=== PATIENT | male | born 1960 | race Caucasian/White ===

== ENCOUNTER 2016-06-04 18:29 | Emergency (ER) | payer OTHER ==
[~2016-06-04] VITALS: Ht 182.9 cm; Wt 74.9 kg
[~2016-06-04 18:29] MED LIST: ALBU18002 INH; BUPR8SUB19 SL
[2016-06-04 19:10] VITALS: TEMP 36.3
[2016-06-04] MEDS ORDERED: SODIUM CHLORIDE 0.9% 1000ML 1,000 ML IV STA (20:29)
[2016-06-04] MEDS ORDERED: SBTSL/8 SL (20:36)
[2016-06-04] MEDS ORDERED: ALBUT/IPRATROP 3MG/0.5MG NEB 3 ML VIAL INH ONE (20:45)
[2016-06-04 21:00] VITALS: O2SAT 98; Ht 182.9 cm; Wt 74.9 kg
[2016-06-04 21:02] LABS: BASO % 0.3 %; BASO ABS # 0.02 K/uL (0-0.2); COMPLETE YES; HEMATOCRIT 41.8 % (42-52); IG% 0.3 %; LYMPH % 43.6 %; LYMPH ABS # 3.41 K/uL (1.2-3.4); MEAN CELL VOLUME 90.9 fL (80-100); MEAN CORPUSCULAR HEMOGLOBIN 30.7 pg (25-34); MEAN CORPUSCULAR HGB CONC 33.7 g/dl (32-36); MEAN PLATELET VOLUME 9.2 fL (7.4-10.4); MONO % 9.8 %; PLATELET COUNT 240 K/uL (130-400); WHITE BLOOD COUNT 7.82 K/uL (4.8-10.8)
--- NOTE | 2016-06-04 21:11 | EMERGENCY ROOM VISIT NOTE ---
History Report prepared by Helen: Kari Whitney Under the Supervision of: Dr. Dav Aquino M.D. First contact with patient: 20:18 Chief Complaint: NEURO SYMPTOMS Stated Complaint: CANT STAY AWAKE,INVOLUNTARY ARM MOVEMENTS,BACKLEG History of Present Illness The patient is a 55 year old male who presents to the Emergency Room with complaints of worsening neuro symptoms that started 2 days ago. The patient states that he has been falling and experiencing LOC for no apparent reason. He states that he has fallen approximately 3 times in the last 2 days. He hit the left side of his back on the corner of the counter during one of his falls, so he is experiencing some left-sided back pain from that. The patient also states that he feels like "he could sleep for 7 days." He denies abdominal pain. The patient's family reports that the patient loses days of memory. For example, the patient went to sleep and woke up two days later, but did not remember being awake two days before. The patient's family member gave him a couple hydrocodone that she had at home around 1500. Per the nursing triage note, the patient has a history of Lyme disease and a TIA. The patient also has mite bites all over his arms related to the place that he is living. Source of History: patient, family Onset: 2 days ago Position: other (global) Quality: other (neuro symptoms) Timing: worsening Associated Symptoms: + LOC, + back pain (left-sided) Review of Systems See HPI for pertinent positives & negatives. A total of 10 systems reviewed and were otherwise negative. Past Medical & Surgical Medical Problems: (1) Lyme disease Family History Hypertension Social History Smoking Status: Current Every Day Smoker Marital Status: single Housing Status: lives with family Current/Historical Medications Scheduled Buprenorphine HCl (Buprenorphine HCl), 20 MG SL DAILY Scheduled PRN Albuterol Sulfate (Proair Respiclick), 2 PUFFS INH QID PRN for Shortness of Breath Allergies Coded Allergies: No Known Allergies (Verified , 02/29/16) Physical Exam Vital Signs Date Time Temp Pulse Resp B/P Pulse Ox O2 Delivery O2 Flow Rate FiO2 06/05/16 01:16 69 18 141/92 100 06/05/16 00:17 69 18 141/92 100 Room Air 06/04/16 22:05 65 12 144/87 100 Room Air 06/04/16 21:00 98 Room Air 3/13/17 21:00 98 Room Air 06/04/16 20:45 62 06/04/16 20:39 63 12 135/85 77 128/87 89 112/91 06/04/16 19:10 36.3 97 19 156/92 98 Room Air Physical Exam GENERAL: Patient is a healthy-appearing well-nourished male. HEAD: Normocephalic atraumatic EYES: Ocular movements intact pupils equal and react to light OROPHARYNX mucous membranes are moist no exudates present no erythema or edema present NECK: Supple no nuchal rigidity CHEST: Good equal expansion LUNGS: Clear and equal to auscultation CARDIAC: Normal S1 and S2 ABDOMEN: Soft nontender no guarding BACK: Tender to L1. No CVA tenderness EXTREMITIES: No pain upon palpation normal muscle strength in all groups no clubbing cyanosis or edema NEURO: Patient is following commands is answering questions appropriately. Alert and oriented x3 Cranial Nerves 2-12 grossly intact Medical Decision & Procedures ER Provider Diagnostic Interpretation: Radiology results as stated below per my review and radiologist interpretation: CHEST ONE VIEW PORTABLE IMPRESSION: No acute cardiopulmonary findings. Electronically signed by: Art Frazier M.D. 06/04/2016 10:12 PM Dictated Date/Time: 06/04/2016 10:[address] OF THE HEAD WITHOUT CONTRAST IMPRESSION: No acute intracranial findings. Electronically signed by: Art Frazier M.D. 06/04/2016 9:51 PM Dictated Date/Time: 06/04/2016 9:[address] OF THE LUMBAR SPINE WITHOUT CONTRAST IMPRESSION: 1. No acute lumbar spine fracture or subluxation. 2. Moderate multilevel degenerative disc disease and facet arthrosis of the lumbar spine. Suboptimal evaluation of the central canal and neural foramen due to CT technique but suspected moderate to severe central canal stenosis at L4-L5 and mild to moderate central canal stenosis at L1-L2. 3. Apparent dilatation of the celiac axis. This may be artifactual. A follow-up nonemergent CTA of the abdomen is recommended. Electronically signed by: Art Frazier M.D. 06/04/2016 10:03 PM Dictated Date/Time: 06/04/2016 9:[address] ABDOMEN & PELVIS IMPRESSION: The liver, gallbladder, spleen, pancreas, and adrenal glands are within normal limits. Kidneys enhance symmetrically. There is no hydronephrosis or radiopaque urolithiasis. IVC is normal. Aorta is normal in caliber. 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 There is no small or large bowel obstruction. The visualized appendix is normal. There is sigmoid diverticulosis without acute diverticulitis. Urinary bladder and prostate are unremarkable. There are no acute osseous findings. Lumbar spondylosis is better described on dedicated CT and MRI of lumbar spine performed on the same day. MRI L SPINE: IMPRESSION: 1. Lumbar spondylosis. 2. Moderate spinal canal narrowing at L1-L2 with mild bilateral foraminal narrowing. 3. Severe spinal canal narrowing at L4-L5. 2. Multilevel foraminal narrowing, severe on the left at L3-L4 and sever bilaterally at L4-L5 and L5-S1. LUMBAR SPINE MRI HISTORY: Trauma. Pain. Pt c/o multiple falls at home TECHNIQUE: Multiplanar multisequence MRI of the lumbar spine was performed without the use of contrast. COMPARISON: None. FINDINGS: For the purpose of the report the L5-S1 disc space will be located on axial image 27 of 30. Degenerative disc change throughout the entire lumbar region L1-L2: Broad-based posterior disc herniation. Mild impact anterior thecal sac. Narrowing of the neuroforamina bilaterally considered moderate L2-L3: Broad-based disc herniation. Mild impact anterior thecal sac. Moderate narrowing of the neuroforamina bilaterally L3-L4: Mild multifactorial narrowing of spinal canal. Moderate narrowing of the neuroforamina bilaterally L4-L5: Severe multifactorial spinal stenosis. Moderate narrowing of the neuroforamina bilaterally L5-S1: Broad-based bulging disc with minimal impact anterior thecal sac. Mild osteophytic narrowing of the neuroforamina bilaterally. IMPRESSION: 1. Multilevel disc herniations at with moderate impact upon the anterior thecal sac as well as neural foramina bilaterally. 2. Severe multifactorial spinal stenosis L4-L5 Electronically signed by: Reid Colmenares M.D. 06/05/2016 6:46 AM Dictated Date/Time: 06/05/2016 6:44 AM ABDOMEN AND PELVIS CT WITH IV CONTRAST CT DOSE: 486.03 mGycm HISTORY: Pain WEAKNESS TECHNIQUE: Multiaxial CT images of the abdomen and pelvis were performed following the use of intravenous contrast. COMPARISON STUDY: None. FINDINGS: Lung bases are clear. Liver spleen and pancreas are unremarkable. The kidneys enhance appropriately. Bowel pattern is considered nonobstructive. No evidence for gallbladder distention. The appendix is normal. 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 No evidence for acute diverticulitis. IMPRESSION: 1. 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 2. Mild chronic sigmoid diverticulosis. 3. Study abdomen and pelvis is otherwise negative Electronically signed by: Reid Colmenares M.D. 06/05/2016 6:35 AM Dictated Date/Time: 06/05/2016 6:33 AM Laboratory Results 06/04/16 20:45 Red Blood Count 4.60, Mean Corpuscular Volume 90.9, Mean Corpuscular Hemoglobin 30.7, Mean Corpuscular Hemoglobin Concent 33.7, Mean Platelet Volume 9.2, Neutrophils (%) (Auto) 42.0, Lymphocytes (%) (Auto) 43.6, Monocytes (%) (Auto) 9.8, Eosinophils (%) (Auto) 4.0, Basophils (%) (Auto) 0.3, Neutrophils # (Auto) 3.29, Lymphocytes # (Auto) 3.41, Monocytes # (Auto) 0.77, Eosinophils # (Auto) 0.31, Basophils # (Auto) 0.02 06/04/16 20:45 Test 06/04/16 20:45 06/04/16 20:47 06/05/16 00:20 White Blood Count 7.82 K/uL (4.8-10.8) Red Blood Count 4.60 M/uL (4.7-6.1) Hemoglobin 14.1 g/dL (14.0-18.0) Hematocrit 41.8 % (42-52) Mean Corpuscular Volume 90.9 fL (80-100) Mean Corpuscular Hemoglobin 30.7 pg (25-34) Mean Corpuscular Hemoglobin Concent 33.7 g/dl (32-36) Platelet Count 240 K/uL (130-400) Mean Platelet Volume 9.2 fL (7.4-10.4) Neutrophils (%) (Auto) 42.0 % Lymphocytes (%) (Auto) 43.6 % Monocytes (%) (Auto) 9.8 % Eosinophils (%) (Auto) 4.0 % Basophils (%) (Auto) 0.3 % Neutrophils # (Auto) 3.29 K/uL (1.4-6.5) Lymphocytes # (Auto) 3.41 K/uL (1.2-3.4) Monocytes # (Auto) 0.77 K/uL (0.11-0.59) Eosinophils # (Auto) 0.31 K/uL (0-0.5) Basophils # (Auto) 0.02 K/uL (0-0.2) RDW Standard Deviation 48.4 fL (36.4-46.3) RDW Coefficient of Variation 14.5 % (11.5-14.5) Immature Granulocyte % (Auto) 0.3 % Immature Granulocyte # (Auto) 0.02 K/uL (0.00-0.02) Anion Gap 8.0 mmol/L (3-11) Est Creatinine Clear Calc Drug Dose 92.0 ml/min Estimated GFR () 103.3 Estimated GFR (Non- 89.1 BUN/Creatinine Ratio 13.3 (10-20) Calcium Level 9.0 mg/dl (8.5-10.1) Total Bilirubin 0.3 mg/dl (0.2-1) Direct Bilirubin < 0.1 mg/dl (0-0.2) Aspartate Amino Transf (AST/SGOT) 21 U/L (15-37) Alanine Aminotransferase (ALT/SGPT) 22 U/L (12-78) Alkaline Phosphatase 93 U/L (45-117) Total Creatine Kinase 209 U/L (39-308) Creatine Kinase MB 2.1 ng/ml (0.5-3.6) Creatine Kinase MB Ratio 1.0 (0-3.0) Troponin I < 0.015 ng/ml (0-0.045) Total Protein 7.5 gm/dl (6.4-8.2) Albumin 3.3 gm/dl (3.4-5.0) Thyroid Stimulating Hormone (TSH) 2.180 uIu/ml (0.300-4.500) Lyme Disease IgG Antibody NEG (NEG) Bedside Glucose 81 mg/dl (70-99) Urine Color YELLOW Urine Appearance CLEAR (CLEAR) Urine pH 7.0 (4.5-7.5) Urine Specific [place] > 1.045 (1.000-1.030) Urine Protein NEG (NEG) Urine Glucose (UA) NEG (NEG) Urine Ketones NEG (NEG) Urine Occult Blood NEG (NEG) Urine Nitrite NEG (NEG) Urine Bilirubin NEG (NEG) Urine Urobilinogen NEG (NEG) Urine Leukocyte Esterase NEG (NEG) Labs reviewed by ED physician. Medications Administered Medications (Trade) Dose Ordered Sig/Bjorn Route Start Time Stop Time Status Last Admin Dose Admin Sodium Chloride (Nss 1000ml) 1,000 ml @ 999 mls/hr Q1H1M STAT IV 06/04/16 20:29 06/04/16 21:29 DC 06/04/16 21:37 999 MLS/HR Albuterol/ Ipratropium (Duoneb) 12 ml ONE ONCE INH 06/04/16 20:45 06/04/16 20:46 DC 06/04/16 20:45 12 ML Permethrin (Elimite 5% Crm) 1 appln NOW STAT EXT 06/04/16 22:06 06/04/16 22:09 DC 06/05/16 00:12 180 APPLN ECG Indication: back/shoulder pain Rate (beats per minute): 65 Rhythm: normal sinus Findings: no acute ischemic change, no ectopy ED Course 2024: Past medical records reviewed. The patient was evaluated in room B12. A complete history and physical examination was performed. 2028: Ordered Sodium Chloride 1000 ml @ 999 mls/hr IV 2044: Ordered DuoNeb 12 ml INH 2205: Ordered Permethrin 1 appln EXT 0037: The outsole caser is going to get the patient patient in to see a physician. 0040: Upon reexamination the patient is doing well. I discussed results and treatment plan with the patient. He verbalizes agreement and understanding. The patient is ready for discharge. Medical Decision Differential diagnosis: Etiologies such as metabolic, infection, hypo/hyperglycemia, electrolyte abnormalities, cardiac sources, intracerebral event, toxicologic, neurologic, as well as others were entertained. This is a 55-year-old male who presents emergency department complaining of multiple falls. This turns out the patient is complaining of sleepwalking and he wakes up on the ground. At first he thought he meant he was having weakness in his legs however on further testing, the patient can walk was tiptoes and his heels and has good balance. In addition he does not have any loss of bowel or bladder control. The patient was found to be infested with mites and therefore had to be moved into a private room. Contact precautions were taken. He was ordered permethrin cream. Based on the patient's complaints he was sent for CAT scan of the head which did not show any evidence of acute infarct. His lumbar spine was concerning for some cord protrusion. based on this he was sent for an MRI of the lower back however I will note that the patient is again able to walk was tiptoes and his heels has no evidence of saddle anesthesia on exam. The patient's family wishes for him to be admitted to the hospital however the hospitalist will not admit him without having a clear diagnosis. At this point the patient wishes to leave the emergency department. I did get in touch with case management who will have closely follow to get the patient in with his primary care physician. Patient and family were in agreement with the treatment plan. Impression Primary Impression: Multiple falls Scribe Attestation The scribe's documentation has been prepared under my direction and personally reviewed by me in its entirety. I confirm that the note above accurately reflects all work, treatment, procedures, and medical decision making performed by me. Departure Information Dispostion Home / Self-Care Referrals No Doctor, Assigned (PCP) Forms HOME CARE DOCUMENTATION FORM, IMPORTANT VISIT INFORMATION, WORK / SCHOOL INSTRUCTIONS Patient Instructions [facility] Additional Instructions Reapply cream in 14 days Follow up with DR Alegria's office for mutiple syncopal episodes You have been examined and treated today on an emergency basis only. This is not a substitute for, or an effort to provide, complete comprehensive medical care. It is impossible to recognize and treat all injuries or illnesses in a single emergency department visit. It is therefore important that you follow up closely with Dr Lea. Call as soon as possible for an appointment. Thank you for your time and consideration. I look forward to speaking with you again soon. Please don't hesitate to call us if you have any questions.
[2016-06-04 21:31] LABS: ALT/SGPT 22 U/L (12-78); BLOOD UREA NITROGEN 13 mg/dl (7-18); BUN/CREATININE RATIO 13.3 (10-20); CARBON DIOXIDE 29 mmol/L (21-32); CHLORIDE 105 mmol/L (98-107); CREATININE 0.95 mg/dl (0.60-1.40); GLUCOSE 86 mg/dl (70-99); POTASSIUM 3.6 mmol/L (3.5-5.1); SODIUM 142 mmol/L (136-145)
[2016-06-04 21:47] LABS: ALKALINE PHOSPHATASE 93 U/L (45-117); AST/SGOT 21 U/L (15-37)
--- NOTE | 2016-06-04 21:53 | DIAGNOSTIC IMAGING REPORT ---
CT OF THE HEAD WITHOUT CONTRAST CLINICAL HISTORY: Altered mental status. Fall. COMPARISON STUDY: Head CT November 15, 2015. CT DOSE: 638.56 mGycm TECHNIQUE: Helical axial images of the head were obtained without IV contrast. Automated exposure control was utilized for the study. FINDINGS: No acute intracranial hemorrhage, midline shift or mass effect is present. Ventricular system is normal. Basilar cisterns are patent. There are no extra axial collections. Walton-white differentiation is maintained. There are no findings to suggest acute dural sinus thrombosis or acute territorial infarct. There is mild mucosal thickening of the ethmoid sinuses. Surgical material within the lateral wall the right orbit is noted. There is no calvarial fracture. Mastoid air cells are clear. IMPRESSION: No acute intracranial findings. Electronically signed by: Art Frazier M.D. 06/04/2016 9:51 PM Dictated Date/Time: 06/04/2016 9:48 PM
--- NOTE | 2016-06-04 22:04 | DIAGNOSTIC IMAGING REPORT ---
CT OF THE LUMBAR SPINE WITHOUT CONTRAST CT DOSE: 558.63 mGycm CLINICAL HISTORY: Low back pain status post fall. TECHNIQUE: Axial images of the lumbar spine were obtained without IV contrast. Sagittal and coronal reconstructions were viewed. COMPARISON STUDY: Lumbar spine CT November 14, 2005. FINDINGS: This exam is mildly compromised by motion artifact. No acute lumbar spine fracture or subluxation is present. Moderate multilevel degenerative disc disease is noted with disc space narrowing, vacuum disc phenomenon and osteophytosis. The central canal and neural foramen are suboptimally assessed by CT. The paravertebral soft tissues are unremarkable by CT. Visualized portions of the sacroiliac joints are intact. There is apparent dilatation of the celiac axis, measuring approximately 1.6 cm. This is partially imaged and may be artifactual. IMPRESSION: 1. No acute lumbar spine fracture or subluxation. 2. Moderate multilevel degenerative disc disease and facet arthrosis of the lumbar spine. Suboptimal evaluation of the central canal and neural foramen due to CT technique but suspected moderate to severe central canal stenosis at L4-L5 and mild to moderate central canal stenosis at L1-L2. 3. Apparent dilatation of the celiac axis. This may be artifactual. A follow-up nonemergent CTA of the abdomen is recommended. Electronically signed by: Art Frazier M.D. 06/04/2016 10:03 PM Dictated Date/Time: 06/04/2016 9:54 PM
[2016-06-04] MEDS ORDERED: PERMETHRIN 5% CR 60 GM TUBE EXT STA (22:06)
--- NOTE | 2016-06-04 22:13 | DIAGNOSTIC IMAGING REPORT ---
CHEST ONE VIEW PORTABLE CLINICAL HISTORY: Shortness of breath. COMPARISON STUDY: Chest CT November 15, 2015. FINDINGS: Lung volumes are normal. There is no pneumothorax or pleural effusion. Cardiac size is normal. Mediastinal contours are normal. There is no evidence of pulmonary edema. IMPRESSION: No acute cardiopulmonary findings. Electronically signed by: Art Frazier M.D. 06/04/2016 10:12 PM Dictated Date/Time: 06/04/2016 10:11 PM
[2016-06-04] MEDS ORDERED: OPTIRAY 320 IV PRN (22:15)
[2016-06-05 00:32] LABS: URINE APPEARANCE CLEAR (CLEAR); URINE BILIRUBIN NEG (NEG); URINE COLOR YELLOW; URINE NITRITE NEG (NEG); URINE SPECIFIC GRAVITY > 1.045 (1.000-1.030); UROBILINOGEN NEG (NEG)
[2016-06-05 00:37] LABS: MANUAL MICROSCOPIC REQUIRED? NO; REVIEW REQ? NO
[2016-06-05 01:16] VITALS: BP 141/92; PULSE 69; O2SAT 100
[2016-06-05 01:40] LABS: LYME DISEASE AB IGG NEG (NEG); LYME DISEASE AB IGM POS (NEG)
--- NOTE | 2016-06-05 06:36 | DIAGNOSTIC IMAGING REPORT ---
ABDOMEN AND PELVIS CT WITH IV CONTRAST CT DOSE: 486.03 mGycm HISTORY: Pain WEAKNESS TECHNIQUE: Multiaxial CT images of the abdomen and pelvis were performed following the use of intravenous contrast. COMPARISON STUDY: None. FINDINGS: Lung bases are clear. Liver spleen and pancreas are unremarkable. The kidneys enhance appropriately. Bowel pattern is considered nonobstructive. No evidence for gallbladder distention. The appendix is normal. 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 No evidence for acute diverticulitis. IMPRESSION: 1. 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 2. Mild chronic sigmoid diverticulosis. 3. Study abdomen and pelvis is otherwise negative Electronically signed by: Reid Colmenares M.D. 06/05/2016 6:35 AM Dictated Date/Time: 06/05/2016 6:33 AM
--- NOTE | 2016-06-05 06:47 | DIAGNOSTIC IMAGING REPORT ---
LUMBAR SPINE MRI HISTORY: Trauma. Pain. Pt c/o multiple falls at home TECHNIQUE: Multiplanar multisequence MRI of the lumbar spine was performed without the use of contrast. COMPARISON: None. FINDINGS: For the purpose of the report the L5-S1 disc space will be located on axial image 27 of 30. Degenerative disc change throughout the entire lumbar region L1-L2: Broad-based posterior disc herniation. Mild impact anterior thecal sac. Narrowing of the neuroforamina bilaterally considered moderate L2-L3: Broad-based disc herniation. Mild impact anterior thecal sac. Moderate narrowing of the neuroforamina bilaterally L3-L4: Mild multifactorial narrowing of spinal canal. Moderate narrowing of the neuroforamina bilaterally L4-L5: Severe multifactorial spinal stenosis. Moderate narrowing of the neuroforamina bilaterally L5-S1: Broad-based bulging disc with minimal impact anterior thecal sac. Mild osteophytic narrowing of the neuroforamina bilaterally. IMPRESSION: 1. Multilevel disc herniations at with moderate impact upon the anterior thecal sac as well as neural foramina bilaterally. 2. Severe multifactorial spinal stenosis L4-L5 Electronically signed by: Reid Colmenares M.D. 06/05/2016 6:46 AM Dictated Date/Time: 06/05/2016 6:44 AM
[2016-06-06 16:59] LABS: 18KDIGG BAND REACTIVE (NONREACTIVE); 23KDIGG BAND NONREACTIVE (NONREACTIVE); 23KDIGM BAND REACTIVE (NONREACTIVE); 28KDIGG BAND NONREACTIVE (NONREACTIVE); 30KDIGG BAND NONREACTIVE (NONREACTIVE); 39KDIGG BAND REACTIVE (NONREACTIVE); 39KDIGM BAND NONREACTIVE (NONREACTIVE); 41KDIGG BAND REACTIVE (NONREACTIVE); 41KDIGM BAND NONREACTIVE (NONREACTIVE); 45KDIGG BAND REACTIVE (NONREACTIVE); 58KDIGG BAND NONREACTIVE (NONREACTIVE); 66KDIGG BAND NONREACTIVE (NONREACTIVE); 93KDIGG BAND NONREACTIVE (NONREACTIVE)
== END 2016-06-05 01:00 | disposition home or self-care (01) ==
LOC: C.EDB 18:31 → C.EDC 06-05 01:00
DX: R29.6 Repeated falls (principal); F17.210 Nicotine dependence, cigarettes, uncomplicated; M54.9 Dorsalgia, unspecified

== ENCOUNTER → 2016-06-08 | Outpatient (CLI) | payer OTHER ==
[~2016-06-08] MED LIST changes: -BUPR8SUB19 SL; +SBTSL/8 SL
[2016-06-08 17:34] LABS: THYROID STIMULATING HORMONE 6.91 uIu/ml (0.300-4.500)
== END | disposition home or self-care (01) ==
LOC: C.LABPBG 13:52
PROVIDERS: ATTEND Internal Medicine Critical Care Medicine
DX: R53.83 Other fatigue (principal); R55 Syncope and collapse

== ENCOUNTER 2019-09-22 22:43 | Observation (INO) ==
--- OUTSIDE RECORDS SUMMARY | 2019-09-22 22:46 | External Medical Summary | Continuity of Care Document ---
:1960 Author Name Alexandria Retana, Provider Address Unavailable Unavailable , Care Team Providers Name Role Phone Unavailable Unavailable Unavailable Fernanda Rivas PA-C Unavailable [email or web address]. AXEL Pickett Unavailable Unavailable Zay DO Unavailable [email or web address] Hyacinth ALMONTE Unavailable Unavailable Unavailable Unavailable Unavailable Problems History of Lyme disease (V12.09) (Z86.19) History of asthma (V12.69) (Z87.09) History of diverticulosis (V12.79) (Z87.19) Hypothyroidism, adult (244.9) (E03.9) Vitamin D deficiency (268.9) (E55.9) Crusted scabies (133.0) (B86) Syncope and collapse (780.2) (R55) Fatigue (780.79) (R53.83) Snoring (786.09) (R06.83) History of illicit drug use (305.90) (Z87.898) Multiple excoriations (919.8) (T07.XXXA) Allergies and Adverse Reactions No Known Drug Allergies (Allergy) Medications Vitamin D3 25 MCG (1000 UT) Oral Tablet; TAKE 1 TABLET DAILY. JENNIFER Rivas Start: 15-Jun-2016 Refills: 0 Levothyroxine Sodium 25 MCG Oral Tablet; TAKE 1 TABLET DAILY. JENNIFER Rivas Start: 19-Jun-2016 Quantity: 30 Refills: 1 Procedures History of Foot Surgery Status: Complete d Immunizations Immunizations not documented Family History Mother Family history of myocardial infarction (V17.3) (Z82.49) Sta tus: Active Social History - Smoking Status Smokes tobacco daily Plan of Treatment Planned Observations Planned Goals not documented Results No Known Results Results not documented
[2019-09-22] MEDS ORDERED: NITROGLYCERIN SL 0.4 MG/TAB TAB SL PRN (22:54)
[2019-09-22 23:10] LABS: Basophils # (auto) 0.04 K/uL (0-0.2); Basophils % (auto) 0.4 %; Eosinophils # (auto) 0.87 K/uL (0-0.5); Eosinophils % (auto) 9.6 %; Hematocrit (blood only) 40.3 % (42-52); Hemoglobin 13.1 g/dL (14.0-18.0); Immature Granulocytes # (auto) 0.02 K/uL (0.00-0.02); Immature Granulocytes % (auto) 0.2 %; Lymphocytes # (auto) 3.93 K/uL (1.2-3.4); Lymphocytes % (auto) 43.3 %; Mean Corpuscular Hemoglobin 30.5 pg (25-34); Mean Corpuscular Hgb Conc 32.5 g/dL (32-36); Mean Corpuscular Volume 93.7 fL (80-100); Mean Platelet Volume 9.4 fL (7.4-10.4); Monocytes # (auto) 0.99 K/uL (0.11-0.59); Monocytes % (auto) 10.9 %; Neutrophils # (auto) 3.23 K/uL (1.4-6.5); Neutrophils % (auto) 35.6 %; Platelet Count 233 K/uL (130-400); RDW Coefficient of Variation 14.7 % (11.5-14.5); RDW Standard Deviation 49.5 fL (36.4-46.3); White Blood Count 9.08 K/uL (4.8-10.8)
--- NOTE | 2019-09-22 23:23 | Emergency Department Note ---
History of Present Illness General Chief complaint: Chest Pain History of Present Illness Maximum Pain Intensity: 3 This 59-year-old presents to the ER complaining of chest pain and shortness of breath that was given aspirin and nitroglycerin by EMS Location: Chest Quality: Hard to breathe Severity: Moderate Duration: Tonight Timing: Started while walking Context: Patient was concerned and came in Modifying factors: better with rest; worse with activity No prior heart testing. Patient does smoke. No alcohol or drug use. No family history of heart disease. No recent stress test or echo. Patient denies prior heart attack. Patient states he is walking developed shortness of breath and chest pain. It did not radiate. He felt better after nitroglycerin from EMS. Patient denies fevers, flulike illness, abdominal pain, leg pain or swelling. Home Medications Home Medications Medication Instructions Recorded Confirmed Type fluticasone propionate [Flovent 2 puff INHALATION DAILY PRN 09/22/19 09/22/19 History HFA] levothyroxine 50 mcg PO QAM 09/22/19 09/22/19 History Allergies Allergy/AdvReac Type Severity Reaction Status Date / Time No Known Allergies Allergy Mild Verified 09/22/19 23:45 Past Med/Surg History Medical History (Updated 09/23/19 @ 00:40 by Judit Rivas PA-C) Drug-induced psychotic disorder (Acute) Lyme arthritis Methamphetamine abuse (Acute) Rheumatoid arthritis Surgical History No pertinent past surgical history Social History marital status: Legally Current Living Situation: Alone current occupational status: employed Feels Safe at Home: Yes Smoking Status: Current every day smoker Hx Alcohol Use: No Hx Substance Use: No Review of Systems A total of 10 systems reviewed and were otherwise negative Physical Exam Vital Signs Vital Signs - 24 hr 09/22/19 22:49 09/22/19 22:50 09/22/19 22:51 Temperature Temperature Source Pulse Rate 57 L 69 59 L Pulse Rate from SpO2 Sensor 59 L Respiratory Rate 19 21 20 Blood Pressure 136/83 Blood Pressure Mean 86 Pulse Oximetry 100 Oxygen Delivery Method Sepsis Recent Fever Within 48 Hours Sepsis Action Taken by Nursing 09/22/19 23:00 09/22/19 23:02 09/22/19 23:05 Temperature 36.5 C Temperature Source Oral Pulse Rate 54 L 68 58 L Pulse Rate from SpO2 Sensor 53 L Respiratory Rate 15 19 Blood Pressure 136/83 Blood Pressure Mean 100 Pulse Oximetry 98 100 100 Oxygen Delivery Method Room Air Sepsis Recent Fever Within 48 Hours No Sepsis Action Taken by Nursing No Action Required 09/22/19 23:10 09/22/19 23:20 09/22/19 23:30 Temperature Temperature Source Pulse Rate 59 L 56 L 53 L Pulse Rate from SpO2 Sensor 60 56 L 55 L Respiratory Rate 12 24 21 Blood Pressure Blood Pressure Mean Pulse Oximetry 100 90 96 Oxygen Delivery Method Sepsis Recent Fever Within 48 Hours Sepsis Action Taken by Nursing 09/22/19 23:34 09/22/19 23:35 09/22/19 23:40 Temperature Temperature Source Pulse Rate 58 L 59 L 57 L Pulse Rate from SpO2 Sensor 57 L 57 L 57 L Respiratory Rate 20 19 20 Blood Pressure 119/84 Blood Pressure Mean 91 Pulse Oximetry 96 96 96 Oxygen Delivery Method Sepsis Recent Fever Within 48 Hours Sepsis Action Taken by Nursing 09/22/19 23:50 09/22/19 23:51 09/23/19 00:12 Temperature Temperature Source Pulse Rate 47 L 45 L 55 L Pulse Rate from SpO2 Sensor 48 L 45 L Respiratory Rate 15 16 12 Blood Pressure 136/81 Blood Pressure Mean 102 Pulse Oximetry 97 98 Oxygen Delivery Method Sepsis Recent Fever Within 48 Hours Sepsis Action Taken by Nursing 09/23/19 00:13 Temperature Temperature Source Pulse Rate 52 L Pulse Rate from SpO2 Sensor 53 L Respiratory Rate 17 Blood Pressure 142/84 H Blood Pressure Mean 100 Pulse Oximetry 100 Oxygen Delivery Method Sepsis Recent Fever Within 48 Hours Sepsis Action Taken by Nursing VITALS: Vitals are noted on the nurse's note and reviewed by myself. Vital signs stable. GENERAL: White male with tobacco odor, in no acute distress, nondiaphoretic, well-developed well-nourished. SKIN: Capillary reflex less than 2 seconds. HEENT: Normocephalic. PERRLA. EOMI. Nares patent. Mucous membranes moist. Neck is supple without nuchal rigidity. HEART: Regular rate and rhythm chest nontender to palpation LUNGS: Mild diffuse and expiratory wheezes, without rales or rhonchi. No retractions or accessory muscle use. ABDOMEN: Positive bowel sounds x 4. Normal tympanic percussion. Soft, nontender, without masses or organomegaly. Acosta sign negative. No guarding or rebound tenderness. No CVA tenderness MUSCULOSKELETAL: No gross musculoskeletal defects. NEURO: Patient was alert and oriented to person place and time. No focal neurological deficits. Course Administered Medications Ioversol (Optiray 320 125ml) 125 ml IV ONCE PRN PRN Reason: Interaction Checking Stop: 09/27/19 00:14 Last Admin: 09/23/19 00:16 Dose: 118 ml Documented by: [id number] Nitroglycerin (Nitrostat) 0.4 mg SL UD PRN PRN Reason: Chest Pain Stop: 10/22/19 22:53 Last Admin: 09/22/19 23:08 Dose: 0.4 mg Documented by: [id number] Discontinued Medications Nitroglycerin (Nitro-Bid 2%) 0.5 inch EXT NOW ONE Stop: 09/22/19 23:32 Last Admin: 09/22/19 23:36 Dose: 0.5 inch Documented by: [id number] Medical Decision Making Medical Records Attestation: I reviewed the patient's medical records. Home Medications Current Medication List: was personally reviewed by me Laboratory Data Attestation: I reviewed the patient's lab results. Result diagrams: 09/22/19 22:59 09/22/19 22:59 Lab Results 09/22/19 09/22/19 09/22/19 Range/Units 22:59 22:59 22:59 WBC 9.08 (4.8-10.8) K/uL RBC 4.30 L (4.7-6.1) M/uL Hgb 13.1 L (14.0-18.0) g/dL Hct 40.3 L (42-52) % MCV 93.7 (80-100) fL MCH 30.5 (25-34) pg MCHC 32.5 (32-36) g/dL RDW Std Deviation 49.5 H (36.4-46.3) fL RDW Coeff of Sid 14.7 H (11.5-14.5) % Plt Count 233 (130-400) K/uL MPV 9.4 (7.4-10.4) fL Immature Gran % (Auto) 0.2 % Neut % (Auto) 35.6 % Lymph % (Auto) 43.3 % [place] % (Auto) 10.9 % Eos % (Auto) 9.6 % Baso % (Auto) 0.4 % Neut # (Auto) 3.23 (1.4-6.5) K/uL Lymph # (Auto) 3.93 H (1.2-3.4) K/uL [place] # (Auto) 0.99 H (0.11-0.59) K/uL Eos # (Auto) 0.87 H (0-0.5) K/uL Baso # (Auto) 0.04 (0-0.2) K/uL Immature Gran # (Auto) 0.02 (0.00-0.02) K/uL PT 11.2 (9.0-12.0) Seconds INR 1.1 (0.9-1.1) APTT 32.2 H (21.0-31.0) Seconds PTT Ratio 1.2 D-Dimer 980 H* (0-500) ug/L FEU Sodium 138 (136-145) mmol/L Potassium 3.8 (3.5-5.1) mmol/L Chloride 110 H (98-107) mmol/L Carbon Dioxide 22 (21-32) mmol/L Anion Gap 6.0 (3-11) BUN 18 (7-18) mg/dl Creatinine 0.96 (0.6-1.4) mg/dl Est Cr Clr Drug Dosing Not Reportable Est GFR ( Amer) 99.2 Est GFR (Non-Af Amer) 85.6 BUN/Creatinine Ratio 18.7 (10-20) Glucose 94 (70-99) mg/dl Calcium 8.5 (8.5-10.1) mg/dl Total Bilirubin 0.5 (0.2-1) mg/dl AST 32 (15-37) U/L ALT 35 (12-78) U/L Alkaline Phosphatase 63 (45-117) U/L Troponin I < 0.015 (0-0.045) ng/ml Total Protein 6.9 (6.4-8.2) gm/dl Albumin 3.0 L (3.4-5.0) gm/dl Globulin 3.9 (2.5-4.0) gm/dl Albumin/Globulin Ratio 0.8 L (0.9-2) Lipase 165 (73-393) U/L Imaging Data Attestation: I personally reviewed and interpreted this imaging study as follows: Blood Pressure Blood Pressure Findings: Normal blood pressure MDM Narrative Prior records/ancillary studies reviewed. Triage Nursing notes reviewed. Additional history obtained from EMS. The patient's history was concerning for chest pain. Differential diagnosis: Etiologies such as cardiac ischemia, aortic dissection, pulmonary embolism, pneumonia, pneumothorax, musculoskeletal, infections, pericarditis, myocarditis, esophageal rupture, gastrointestinal, as well as others were entertained. Physical examination: As above. ER treatment provided: An order was placed for continuous cardiac monitoring. The monitor shows a rate of 50-100 with a normal sinus rhythm. Nitroglycerin and paste, EMS gave aspirin and nitroglycerin On reassessment the patient felt better. Diagnostic interpretation by me: EKG #1: The electrocardiogram was negative for pathologic change. Normal sinus, normal intervals, no acute ST-T wave changes. Rate of 53. Impression sinus bradycardia interpreted by myself EKG ordered for chest pain I think arrhythmia is unlikely. EKG shows normal sinus rhythm with no interval abnormalities such as QT prolongation or WPW. There are no findings to suggest Brugada syndrome. Cardiac monitoring in the emergency department reveals no tachycardic or bradycardic dysrhythmia. Hypertrophic cardiomyopathy was considered but there are no clear historical elements pointing toward this. EKG is not suggestive. The QRS voltage is not extremely large and there are no suggestive Q waves. EKG #2: The electrocardiogram was negative for pathologic change. Normal sinus, normal intervals, no acute ST-T wave changes. Rate of 53. Impression sinus bradycardia interpreted by myself EKG ordered for chest pain I think arrhythmia is unlikely. EKG shows normal sinus rhythm with no interval abnormalities such as QT prolongation or WPW. There are no findings to suggest Brugada syndrome. Cardiac monitoring in the emergency department reveals no tachycardic or bradycardic dysrhythmia. Hypertrophic cardiomyopathy was considered but there are no clear historical elements pointing toward this. EKG is not suggestive. The QRS voltage is not extremely large and there are no suggestive Q waves. The labs revealed negative troponin. Elevated d-dimer. Mild anemia Imaging studies: Chest x-ray with no acute consolidation, pneumothorax or free air per my interpretation CTA CHEST: No pulmonary embolus. Peribronchial thickening. No consolidation Small mediastinal and hilar nodes. No effusions. Pulmonary emphysema. Few small calcified and non-calcified nodules Radiologist: Waldo Beltre M.D. HEART SCORE: Hx: high/mod/low suspicion: 1 ECG: ST depression/nonspecific changes/normal: 0 Age: Greater than 65/45-64/less than 45: 1 Risk factors: (Hypertension, hyperlipidemia, diabetes, coronary disease, tobacco use, cocaine use): 2 Troponin: Greater than 2 times normal limits/1-2 times normal limits/normal: 0 Total: 4 Consultation: A consultation was placed with the hospitalist, Dr Arroyo. The case was discussed and diagnostics were reviewed. The patient was evaluated in the ER for further treatment. Exam and history seem consistent with chest pain with concerns for cardiac in etiology. He felt better after nitroglycerin. Nitropaste was placed. Troponin is negative. CTA is negative. Medicine was consulted. Patient will be evaluated for admission. Heart score is 4. No prior cardiac testing. By the evaluation outlined above emergent etiologies such as aortic dissection, pulmonary embolism, pneumonia, pneumothorax, infections, pericarditis, myocarditis, gastrointestinal, as well as others were deemed relatively unlikely. The pt informed about the findings as listed above. All questions were answered and pleased with the treatment. The chart was completed utilizing [employer] voice recognition software. Grammatical errors, random word insertions, pronoun errors, and incomplete sentences are an occassional consequence of this system due to software limitations, ambient noise, and hardware issues. Any formal questions or concerns about the content, text, or information contained within the body of this dictation should be directly addressed to the physician business development assistant for clarification. Impression & Plan Chest pain, Acute dyspnea Discharge Plan Visit Data Chief Complaint: Chest Pain ED Provider: Ulysses Armenta ED Midlevel Provider: Judit Rivas Discharge Problem: Chest pain, Acute dyspnea Patient Disposition: Being Evaluated by Hospitalist Condition: Good Forms Stand Alone Forms: My [employer] Prescriptions Prescriptions: No Action levothyroxine 50 mcg tablet 50 mcg PO QAM RF: 0 Flovent HFA 110 mcg/actuation HFA aerosol inhaler 2 puff INHALATION DAILY PRN (Reason: Shortness Of Breath Or Wheezing) RF: 0 Referrals Referrals: Prakash Freeman [Primary Care Provider] - Discharge Problem: Chest pain Qualifiers: Chest pain type: unspecified Qualified Code(s): R07.9 - Chest pain, unspecified
[2019-09-22 23:27] LABS: Alanine Aminotransferase 35 U/L (12-78); Aspartate Aminotransferase 32 U/L (15-37); BUN Creatinine Ratio 18.7 (10-20); Blood Urea Nitrogen 18 mg/dl (7-18); Calcium 8.5 mg/dl (8.5-10.1); Carbon Dioxide 22 mmol/L (21-32); Chloride 110 mmol/L (98-107); Est GFR (African American) 99.2; Est GFR (Non-African American) 85.6; Glucose 94 mg/dl (70-99); Lipase 165 U/L (73-393); Potassium 3.8 mmol/L (3.5-5.1); Sodium 138 mmol/L (136-145)
[2019-09-22] MEDS ORDERED: NITROGLYCERIN 2% OINTMENT 30GM TUBE EXT ONE (23:31)
[2019-09-22 23:32] LABS: Albumin Globulin Ratio 0.8 (0.9-2); Alkaline Phosphatase 63 U/L (45-117); Bilirubin,Total 0.5 mg/dl (0.2-1); Globulin 3.9 gm/dl (2.5-4.0); Total Protein 6.9 gm/dl (6.4-8.2); Troponin I < 0.015 ng/ml (0-0.045)
[2019-09-22 23:45] LABS: INR 1.1 (0.9-1.1); Partial Thromboplastin Ratio 1.2; Partial Thromboplastin Time 32.2 Seconds (21.0-31.0); Prothrombin Time 11.2 Seconds (9.0-12.0)
[2019-09-22 23:48] LABS: D Dimer 980 ug/L FEU (0-500)
[2019-09-23] MEDS ORDERED: OPTIRAY 320 125ml IV PRN (00:15)
[2019-09-23] MEDS ORDERED: POLYETHYLENE (MIRALAX) 17 GM PACK PO PRN (01:34)
[2019-09-23] MEDS ORDERED: NITROGLYCERIN SL 0.4 MG/TAB TAB SL PRN (01:34)
[2019-09-23] MEDS ORDERED: ACETAMINOPHEN 325 MG TAB PO PRN (01:34)
[2019-09-23] MEDS ORDERED: ONDANSETRON INJ 2 MG/ML 2 ML VIAL IV PRN (01:34)
[2019-09-23] MEDS ORDERED: FLUTICASONE FUROATE 100MCG 14 PUFFS/INHALER INH PRN (01:46)
--- NOTE | 2019-09-23 01:53 | History and Physical Report ---
DATE OF ADMISSION: 09/23/2019 CHIEF COMPLAINT: Chest pain. HISTORY OF PRESENT ILLNESS: This is a 59-year-old male with past medical history significant for tobacco abuse, asthma, hypothyroidism,presents with chest pain. The patient says he was walking when he felt chest pain and short of breath, sharp kind of pain, moderate in severity, no radiation, no nausea, no sweating, no dizziness, came to the ER, after nitroglycerin, pain seem to improve. Currently, patient is very drowsy, sleepy, difficult to arouse, but answers appropriately. Denies any cough, denies any fever or chills. Denies any loss of sense of smell or taste or any exposure to COVID patients. Denies any headache. Denies any earache or runny nose, no nausea, no abdominal pain. No rash seen. Says he smokes one pack of cigarettes every 3 days. Denies any alcohol use or drug use, but in the [employer] problem list there is methamphetamine abuse and drug induced psychotic disorder. ALLERGIES: No known drug allergies. PAST MEDICAL HISTORY: As mentioned above. PAST SURGICAL HISTORY: Colonoscopies, teeth removed, fusion of the foot bones, revision of calf tendon as per the [facility]. MEDICATIONS: The patient is on levothyroxine 50 mcg daily, Flonase 2 puffs inhalation daily. FAMILY HISTORY: The patient denies family history. SOCIAL HISTORY: Smokes 1 pack of cigarettes every 3 days for many years. Denies alcohol use, no drug use. REVIEW OF SYMPTOMS: As per HPI. Could not get detailed review of symptoms as the patient is very drowsy and difficult to arouse. PHYSICAL EXAMINATION: GENERAL: The patient is drowsy, does not seem to be in acute distress. VITAL SIGNS: Temperature 36.5, pulse 52, respiratory rate 17, blood pressure 142/84, oxygen 100% on room air. HEENT: No pallor, no icterus. Pupils equal, round, reactive to light. NECK: No JVD, no neck masses. CARDIOVASCULAR: S1, S2 heard, regular rate and rhythm, no murmur, no gallop, bruise seen in the left shoulder. RESPIRATORY SYSTEM: Normal AP diameter. No accessory muscle use. No wheezing, no crackles. ABDOMEN: Soft, bowel sounds present, nontender. No distention. CENTRAL NERVOUS SYSTEM: Alert, drowsy but arousable, answers appropriately and obeys simple commands. Moves extremities. EXTREMITIES: No edema, no erythema. LABORATORY DATA: WBC is 9.08, hemoglobin 13.1, hematocrit 40.3, platelets 233. PT 11.2, INR 1.1, APTT 32.2. D-dimer 980. Sodium 138, potassium 3.8, chloride 110, bicarbonate 22, BUN 18, creatinine 0.96, serum glucose 94, calcium 8.4, total bilirubin 0.5, AST 32, ALT 35, alkaline phosphatase 63, troponin I less than 0.015. Lipase 165. IMAGING: Chest x-ray, no acute findings. CT of the chest, no PE in the preliminary report. EKG: Sinus bradycardia, rate of 54, no significant change was found. ASSESSMENT AND PLAN: This is a 59-year-old male who presents with chest pain on exertion and shortness of breath. 1. Chest pain on exertion: Initial workup is negative. Risk factors of tobacco abuse and age. We will observe in med/tele, serial cardiac enzymes, echocardiogram. Keep n.p.o., consult cardiology in a.m. D-dimer is elevated, but the CTA of chest preliminary report is unremarkable. 2. Hypothyroidism: Continue Synthroid. 3. Asthma: Continue his inhalers. 4. Tobacco abuse: Needs counseling. The patient is drowsy. Denies any drug abuse, but there is question of methamphetamine abuse. Drug induced psychotic disorder on the problem list. We will check urine drug screen. 5. Deep venous thrombosis prophylaxis, sequential compression devices. 6. Final disposition: Observation in med/tele. Level 1 full code. Expect discharge home and follow with his family doctor. BHARTI
[2019-09-23] MEDS: LEVOTHYROXINE SODIUM 50 MCG TABLET PO SCH (05:16)
[2019-09-23 05:44] LABS: Basophils # (auto) 0.03 K/uL (0-0.2); Basophils % (auto) 0.3 %; Eosinophils # (auto) 0.86 K/uL (0-0.5); Eosinophils % (auto) 9.8 %; Hematocrit (blood only) 41.1 % (42-52); Hemoglobin 13.2 g/dL (14.0-18.0); Immature Granulocytes # (auto) 0.01 K/uL (0.00-0.02); Immature Granulocytes % (auto) 0.1 %; Lymphocytes # (auto) 3.76 K/uL (1.2-3.4); Lymphocytes % (auto) 42.9 %; Mean Corpuscular Hemoglobin 30.1 pg (25-34); Mean Corpuscular Hgb Conc 32.1 g/dL (32-36); Mean Corpuscular Volume 93.6 fL (80-100); Mean Platelet Volume 9.3 fL (7.4-10.4); Monocytes # (auto) 0.93 K/uL (0.11-0.59); Monocytes % (auto) 10.6 %; Neutrophils # (auto) 3.17 K/uL (1.4-6.5); Neutrophils % (auto) 36.3 %; Platelet Count 243 K/uL (130-400); RDW Coefficient of Variation 14.5 % (11.5-14.5); RDW Standard Deviation 49.6 fL (36.4-46.3); Red Blood Count 4.39 M/uL (4.7-6.1); White Blood Count 8.76 K/uL (4.8-10.8)
[2019-09-23 06:23] LABS: BUN Creatinine Ratio 16.2 (10-20); Blood Urea Nitrogen 14 mg/dl (7-18); Calcium 8.3 mg/dl (8.5-10.1); Carbon Dioxide 24 mmol/L (21-32); Chloride 111 mmol/L (98-107); Creatinine Clr Calc Pharmacy 92.9 ml/min; Est GFR (African American) 108.2; Est GFR (Non-African American) 93.4; Glucose 89 mg/dl (70-99); Magnesium 2.2 mg/dl (1.8-2.4); Potassium 3.5 mmol/L (3.5-5.1); Sodium 138 mmol/L (136-145)
[2019-09-23 06:28] LABS: Chol HDL Ratio 3; Cholesterol 141 mg/dl (0-200); HDL Cholesterol 50 mg/dl; LDL Cholesterol Calculated 78 mg/dl; Triglycerides 67 mg/dl (0-150); Troponin I < 0.015 ng/ml (0-0.045); VLDL Cholesterol 13 mg/dl
--- NOTE | 2019-09-23 07:21 | XRay Report ---
SINGLE VIEW CHEST CLINICAL HISTORY: Atypical chest pain. FINDINGS: 2 AP, portable, upright chest radiographs are compared to study dated 06/04/2016. Impression degraded The cardiomediastinal silhouette is unremarkable. Emphysema and chronic interstitial thicke olivia are similar to previous. There is bibasilar scarring/atelectasis. No airspace consolidation or l arge pleural effusion is identified. No pneumothorax is seen. The skeletal structures appear osteopen ic. The bony thorax is grossly intact. IMPRESSION: Emphysematous change with no acute cardiopulmonary abnormality. ACT 112: Negative or not required by law. Electronically signed by: Anup Barry M.D. 09/23/2019 7:20 AM
[2019-09-23 07:31] LABS: Amphetamines+Metham, Urine Pos (Neg); Barbiturates, Urine Neg (Neg); Benzodiazepine, Urine Neg (Neg); Cocaine, Urine Neg (Neg); MDMA (Ecstacy), Urine Pos (Neg); Methadone, Urine Neg (Neg); Opiate, Urine Neg (Neg); Phencyclidine, Urine Neg (Neg)
--- NOTE | 2019-09-23 07:57 | CT Scan Report ---
CT ANGIOGRAM OF THE CHEST CLINICAL HISTORY: Atypical chest pain. COMPARISON STUDY: Chest x-ray dated 09/22/2019. TECHNIQUE: Following the IV administration of 118 cc of Optiray 320, CT angiogram of the chest was pe rformed from the upper abdomen to the thoracic inlet utilizing the pulmonary embolus protocol. Images are reviewed in the axial, sagittal, and coronal planes. 3-D MIPS images are created and assessed. I V contrast was administered without complication. A dose lowering technique was utilized adhering to the principles of ALARA. CT DOSE: 290.06 mGy.cm FINDINGS: Thyroid: Imaged portions of the thyroid gland are normal in size and attenuation. Thoracic aorta: The thoracic aorta is normal in caliber and demonstrates standard 3-vessel arch anato my. No dissection is seen. Pulmonary vasculature: The pulmonary trunk is normal in caliber. There are no filling defects identif ied in main, lobar, or segmental pulmonary branches to suggest pulmonary embolus. Heart: The heart is mildly enlarged and without pericardial effusion. There are coronary artery calci fications. Lungs and pleural spaces: Evaluation of the lung parenchyma is degraded by motion artifact. Emphysema tous change is noted. There is no airspace consolidation or pleural effusion. Scattered calcified gra nulomas are observed. Foci of scarring/atelectasis are noted at the lung bases. There is mild diffuse peribronchial thickening. There is fluid/secretions versus mucus plugging present within the lower l obe airways. A 3 mm pulmonary nodule at the left apex is seen on image #282. A 4 mm left upper lobe n odule is seen on image #228. Mediastinum: Scattered subcentimeter mediastinal lymph nodes are not pathologically enlarged by size criteria. Calcification containing nodes are noted. Akiko: There are calcified hilar nodes. No hilar adenopathy is seen. Axillae: There is no axillary lymphadenopathy. Upper abdomen: Partially visualized upper abdominal viscera is within normal limits. Skeletal structures: The skeletal structures appear osteopenic. There are acute left anterolateral 2n d through 6th rib fractures. Degenerative change is noted in the shoulders and thoracic spine. No lyt ic or blastic bony lesions are seen. There are healed right-sided rib fractures. IMPRESSION: 1. There is no evidence of pulmonary embolus in the main, lobar, or segmental pulmonary arteries. 2. There are acute left-sided rib fractures as above. 3. Cardiomegaly and emphysema. 4. There is no airspace consolidation or pleural effusion. 5. Mild diffuse peribronchial thickening suggests bronchitis/reactive airway disease. Additionally, t here is mucus plugging versus fluid/secretions within the lower lobe airways. Clinical correlation wi ll be required. 6. There are 2 left upper lobe pulmonary nodules measuring up to 4 mm. These are pathologically indet erminant and should be followed as per the Fleischner criteria. See below. Please refer to below summary of Fleischner criteria recommendations for follow-up of incidental CT n odules (Sally Mayo, Guidelines for management of small pulmonary nodules detected on CT scans: A sta tement from the Fleischner Society, Radiology 237: [phone].) SOLID NODULES Solitary nodule size: <6 mm * low risk patients: no follow-up needed * high risk patients: optional CT at 12 months Solitary nodule size: 6-8 mm * low risk patients: follow-up at 6-12 months, then consider further follow-up at 18-24 months * high risk patients: initial follow-up CT at 6-12 months and then at 18-24 months if no change Solitary nodule size: >8 mm * either low or high risk patients - consider follow-up CT at 3 months, and/or CT-PET, and/or biopsy Multiple nodules size: <6 mm * low risk patients: no routine follow-up * high risk patients: optional CT at 12 months Multiple nodules size: 6-8 mm * low risk patients: follow-up at 3-6 months, then consider further follow-up at 18-24 months * high risk patients: follow-up at 3-6 months, then at 18-24 months if no change Multiple nodules size: >8 mm * low risk patients: follow-up at 3-6 months, then consider further follow-up at 18-24 months * high risk patients: follow-up at 3-6 months, then at 18-24 months if no change Note: newly detected indeterminate nodule in persons 35 years of age or older. * low risk patients: minimal or absent history of smoking and/or other known risk factors * high risk patients: history of smoking or of other known risk factors (e.g. first degree relative with lung cancer, or exposure to asbestos, radon, uranium) * if a nodule up to 8 mm is partly solid or is ground glass further follow-up is required after 24 m onths to exclude possible slow growing adenocarcinoma (KIP) SUBSOLID NODULES Solitary pure ground-glass nodule * nodule size <6 mm - no CT follow-up required * nodule size >=6 mm - follow-up CT at 6-12 months, then every 2 years until 5 years Solitary part-solid nodule * nodule size <6 mm - no CT follow-up required * nodule size >=6 mm - follow-up CT at 3-6 months. If unchanged, and solid component remains <6 mm, then annual follow-up for 5 years Multiple subsolid nodules * nodule size <6 mm - follow-up CT at 3-6 months, consider further follow-up at 2 and 4 years if sta ble * nodule size >=6 mm - follow-up CT at 3-6 months, subsequent management based on the most suspiciou s nodule(s) ACT 112: Negative or not required by law. Electronically signed by: Anup Barry M.D. 09/23/2019 7:56 AM
[2019-09-23] MEDS ORDERED: XOPENEX/ATROVENT 1.25mg/0.5MG NEB COMBO NEB SCH (08:25)
[2019-09-23] MEDS ORDERED: ASPIRIN 81 MG ECTAB PO SCH (09:00)
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
[2019-09-23] MEDS: IPRATROPIUM BROMIDE NEB SOLN 0.02% 2.5 ML VIAL INH SCH ×3 (11:04→19:08)
[2019-09-23] MEDS: ACETYLCYSTEINE 10% INHAL SOLN 4 ML **DISPENSED BY RESP. INH SCH ×2 (11:04→19:08)
[2019-09-23] MEDS: LEVALBUTEROL 1.25MG/0.5ML NEB INH SCH ×3 (11:04→19:07)
--- NOTE | 2019-09-23 14:35 | Consultation Report ---
DATE OF CONSULTATION: 09/23/2019 HISTORY OF PRESENT ILLNESS: The patient is a 59-year-old white male with complaints of left shoulder pain. There is a large ecchymotic area and contusion over his left anterior shoulder. He had a fall. No x-rays are currently available. PHYSICAL EXAMINATION: He is neurovascularly and neurologically intact of his left upper extremity visually and via the chest x-ray, only partial view of the shoulder could be seen. There is no evidence of any type of dislocation. We will get an x-ray and pending x-ray findings, potentially an MRI. We will follow with you. ASSESSMENT: Rule out fracture, left shoulder. PLAN: X-ray, possible MRI pending findings and clinical exam.
--- NOTE | 2019-09-23 14:48 | Electrocardiogram Report ---
Test Reason : Blood Pressure : / mmHG Vent. Rate : 054 BPM Atrial Rate : 054 BPM P-R Int : 194 ms QRS Dur : 104 ms QT Int : 436 ms P-R-T Axes : 076 062 066 degrees QTc Int : 413 ms Sinus bradycardia Otherwise normal ECG When compared with ECG of 22-SEP-2019 22:49, No significant change was found Confirmed by aSmy Lang ([id number]) on 09/23/2019 2:48:19 PM Referred By: REFERRED SELF Confirmed By:Samy Lang
--- NOTE | 2019-09-23 14:48 | Electrocardiogram Report ---
Test Reason : Blood Pressure : / mmHG Vent. Rate : 053 BPM Atrial Rate : 053 BPM P-R Int : 192 ms QRS Dur : 096 ms QT Int : 424 ms P-R-T Axes : 078 068 072 degrees QTc Int : 397 ms Sinus bradycardia Otherwise normal ECG When compared with ECG of 04-JUN-2016 20:36, No significant change was found Confirmed by Samy Lang ([id number]) on 09/23/2019 2:48:10 PM Referred By: REFERRED SELF Confirmed By:Samy Lang
--- NOTE | 2019-09-23 17:19 | Hospitalist Progress Note ---
Date of Service September 23, 2019 Assessment & Plan (1) Chest pain: ASSESSMENT AND PLAN: This is a 59-year-old male with history of hypothyroidism, asthma, smoker, who presents with chest pain on exertion and shortness of breath. 1. Chest pain, likely secondary to left rib fractures, status post fall --Acute coronary syndrome ruled out Chief Nurse Anesthetist consulted, no further cardiac testing at this point --Start Tylenol every 8 Incentive spirometry PT OT Left shoulder pain, status post fall --Shoulder x-ray pending Orthopedic consult PT OT Positive urine drug screen --Positive for MDMA, methamphetamine, marijuana Patient admits to using above for recreation Counseling for cessation performed Will need to be reported to [facility] Elevated d-dimer --CT negative for PE We will order Doppler ultrasound to rule out DVT 2. Hypothyroidism: Continue Synthroid. 3. Asthma: Continue his inhalers. Stable CT chest: Mucous plug --Nebs, Mucomyst 4. Tobacco abuse: --Counseling performed 5. Deep venous thrombosis prophylaxis, sequential compression devices. 6. Final disposition: PT OT evaluation Admission and Anticipated Discharge Date Admission Date: September 23, 2019 Subjective ff up for chest pain seen resting in bed, sleeping but easily awakened oriented x 3, not in distress main symptoms is left sided rib pain no shortness of breath, dizziness, nausea also reports left shoulder pain no other symptoms Review of Systems Review of Systems: All systems reviewed & are unremarkable except as noted in HPI & below Physical Exam Physical Exam: General- oriented x 3, not in distress, speaks in sentences with no effort or accessory muscle use Head- atraumatic Eyes- PERRL, EOMI, anicteric ENT- oropharynx clear Neck- supple, no JVD, no adenopathy, no thyromegaly; carotids +2/2, no bruits appreciated Lungs- clear to auscultation bilaterally, no rales/wheezes Heart- normal rate, regular rhythm; no murmur, no gallop, no rub appreciated Abdomen- normal bowel sounds, nondistended, soft, nontender, no masses or hepatosplenomegaly Extremities- no pretibial edema, no calf tenderness; peripheral pulses intact left shoulder- moderate edema with hematoma on the anterior region, mild tenderness, some limitation on ROM due to pain Neuro- alert, oriented x 3; CN 2-12 grossly intact; motor 5/5 bilaterally;sensation 100% on all extremities; no other gross focal neurologic deficits Skin- warm & dry Results & Data Results & Data ([facility]) Vital Signs (Past 12 Hours) Vital Signs Temp Pulse Pulse Resp BP Pulse Ox 09/23/19 15:48 36.6 C 62 18 137/72 98 09/23/19 11:34 36.5 C 60 19 157/82 H 98 09/23/19 11:07 60 16 93 09/23/19 07:52 36.4 C L 55 L 18 149/78 H 95 Laboratory Results Laboratory Results - last 24 hr 09/22/19 09/22/19 09/22/19 22:59 22:59 22:59 WBC 9.08 RBC 4.30 L Hgb 13.1 L Hct 40.3 L MCV 93.7 MCH 30.5 MCHC 32.5 RDW Std Deviation 49.5 H RDW Coeff of Sid 14.7 H Plt Count 233 MPV 9.4 Immature Gran % (Auto) 0.2 Neut % (Auto) 35.6 Lymph % (Auto) 43.3 [place] % (Auto) 10.9 Eos % (Auto) 9.6 Baso % (Auto) 0.4 Neut # (Auto) 3.23 Lymph # (Auto) 3.93 H [place] # (Auto) 0.99 H Eos # (Auto) 0.87 H Baso # (Auto) 0.04 Immature Gran # (Auto) 0.02 PT 11.2 INR 1.1 APTT 32.2 H PTT Ratio 1.2 D-Dimer 980 H* Sodium 138 Potassium 3.8 Chloride 110 H Carbon Dioxide 22 Anion Gap 6.0 BUN 18 Creatinine 0.96 Est Cr Clr Drug Dosing Not Reportable Est GFR ( Amer) 99.2 Est GFR (Non-Af Amer) 85.6 BUN/Creatinine Ratio 18.7 Glucose 94 Calcium 8.5 Magnesium Total Bilirubin 0.5 AST 32 ALT 35 Alkaline Phosphatase 63 Troponin I < 0.015 Total Protein 6.9 Albumin 3.0 L Globulin 3.9 Albumin/Globulin Ratio 0.8 L Triglycerides Cholesterol LDL Cholesterol, Calc VLDL Cholesterol, Calc HDL Cholesterol Cholesterol/HDL Ratio Lipase 165 Urine Opiates Screen Ur Methadone, Qual Urine Barbiturates Ur Phencyclidine (PCP) U Amphetamines Confirm U Amphetamin/Meth Scrn U Methamphetamin Confrm Urine MDEA MDMA (Ecstasy) Screen MDMA Urine MDMA U Benzodiazepines Scrn Ur Cocaine Metabolite U Marijuana (THC) Screen U Marijuana THC Carboxy Drug Screen Comment 09/23/19 09/23/19 09/23/19 05:18 05:18 07:02 WBC 8.76 RBC 4.39 L Hgb 13.2 L Hct 41.1 L MCV 93.6 MCH 30.1 MCHC 32.1 RDW Std Deviation 49.6 H RDW Coeff of Sid 14.5 Plt Count 243 MPV 9.3 Immature Gran % (Auto) 0.1 Neut % (Auto) 36.3 Lymph % (Auto) 42.9 [place] % (Auto) 10.6 Eos % (Auto) 9.8 Baso % (Auto) 0.3 Neut # (Auto) 3.17 Lymph # (Auto) 3.76 H [place] # (Auto) 0.93 H Eos # (Auto) 0.86 H Baso # (Auto) 0.03 Immature Gran # (Auto) 0.01 PT INR APTT PTT Ratio D-Dimer Sodium 138 Potassium 3.5 Chloride 111 H Carbon Dioxide 24 Anion Gap 3.0 BUN 14 Creatinine 0.88 Est Cr Clr Drug Dosing 92.9 Est GFR ( Amer) 108.2 Est GFR (Non-Af Amer) 93.4 BUN/Creatinine Ratio 16.2 Glucose 89 Calcium 8.3 L Magnesium 2.2 Total Bilirubin AST ALT Alkaline Phosphatase Troponin I < 0.015 Total Protein Albumin Globulin Albumin/Globulin Ratio Triglycerides 67 Cholesterol 141 LDL Cholesterol, Calc 78 VLDL Cholesterol, Calc 13 HDL Cholesterol 50 Cholesterol/HDL Ratio 3 Lipase Urine Opiates Screen Neg Ur Methadone, Qual Neg Urine Barbiturates Neg Ur Phencyclidine (PCP) Neg U Amphetamines Confirm U Amphetamin/Meth Scrn Pos H U Methamphetamin Confrm Urine MDEA MDMA (Ecstasy) Screen Pos H MDMA Urine MDMA U Benzodiazepines Scrn Neg Ur Cocaine Metabolite Neg U Marijuana (THC) Screen Pos H U Marijuana THC Carboxy Drug Screen Comment 09/23/19 09/23/19 07:02 10:50 WBC RBC Hgb Hct MCV MCH MCHC RDW Std Deviation RDW Coeff of Sid Plt Count MPV Immature Gran % (Auto) Neut % (Auto) Lymph % (Auto) [place] % (Auto) Eos % (Auto) Baso % (Auto) Neut # (Auto) Lymph # (Auto) [place] # (Auto) Eos # (Auto) Baso # (Auto) Immature Gran # (Auto) PT INR APTT PTT Ratio D-Dimer Sodium Potassium Chloride Carbon Dioxide Anion Gap BUN Creatinine Est Cr Clr Drug Dosing Est GFR ( Amer) Est GFR (Non-Af Amer) BUN/Creatinine Ratio Glucose Calcium Magnesium Total Bilirubin AST ALT Alkaline Phosphatase Troponin I < 0.015 Total Protein Albumin Globulin Albumin/Globulin Ratio Triglycerides Cholesterol LDL Cholesterol, Calc VLDL Cholesterol, Calc HDL Cholesterol Cholesterol/HDL Ratio Lipase Urine Opiates Screen Ur Methadone, Qual Urine Barbiturates Ur Phencyclidine (PCP) U Amphetamines Confirm Pending U Amphetamin/Meth Scrn U Methamphetamin Confrm Pending Urine MDEA Pending MDMA (Ecstasy) Screen MDMA Pending Urine MDMA Pending U Benzodiazepines Scrn Ur Cocaine Metabolite U Marijuana (THC) Screen U Marijuana THC Carboxy Pending Drug Screen Comment Pending (1) Chest pain Chest pain type: unspecified Qualified Code(s): R07.9 - Chest pain, unspecified
--- NOTE | 2019-09-23 17:43 | XRay Report ---
XR shoulder LT min 2V routine CLINICAL HISTORY: shoulder pain, s/p fall trauma. Pain. COMPARISON: None. DISCUSSION: Moderate degenerative change of the acromioclavicular as well as coronal humeral joints. Mild reactive osteophytic changes throughout. Small bone cyst involving the mid left humerus. There is no evidence for soft tissue swelling. IMPRESSION: No acute process. Moderate degenerative change. ACT 112: Negative or not required by law. The above report was generated using voice recognition software. It may contain grammatical, syntax or spelling errors. Electronically signed by: Reid Colmenares M.D. 09/23/2019 5:42 PM
[2019-09-23] MEDS: ACETAMINOPHEN 325 MG TAB PO SCH ×2 (18:10→23:05)
[2019-09-24] MEDS: LEVALBUTEROL 1.25MG/0.5ML NEB INH SCH ×3 (00:26→13:05)
[2019-09-24] MEDS: IPRATROPIUM BROMIDE NEB SOLN 0.02% 2.5 ML VIAL INH SCH ×3 (00:26→13:05)
[2019-09-24] MEDS: ACETAMINOPHEN 325 MG TAB PO SCH ×2 (06:05→13:07)
[2019-09-24] MEDS: LEVOTHYROXINE SODIUM 50 MCG TABLET PO SCH (06:06)
[2019-09-24] MEDS: ACETYLCYSTEINE 10% INHAL SOLN 4 ML **DISPENSED BY RESP. INH SCH (07:30)
--- NOTE | 2019-09-24 08:35 | Ultrasound Report ---
BILATERAL LOWER EXTREMITY VENOUS DOPPLER HISTORY: Leg swelling. elevated d dimer, r/o dvt COMPARISON STUDY: None. FINDINGS: There is normal compressibility, flow, and augmentation within the bilateral lower extremit y deep venous systems. There is a 5.2 x 4.1 x 5.1 cm complex collection within the left popliteal fos sa. This may demonstrate a small amount of color flow. IMPRESSION: No DVT within the right or left lower extremity. Complex collection within the left popliteal fossa m easuring 5.2 x 4.1 x 5.1 cm. This is indeterminate but may demonstrate color flow. Follow-up ultrasou nd one month is recommended to ensure stability/resolution. ACT 112: Positive. There are findings on this exam that require communication between the performing entity and the patient following Patient Test Result Information Act ([place] Act 112) guidelines. Electronically signed by: Azeem Singh M.D. 09/24/2019 8:34 AM
--- NOTE | 2019-09-24 09:01 | Orthopedic Progress Note ---
Date of Service September 24, 2019 Assessment & Plan (1) Left shoulder pain: Continues to have left shoulder pain that seems about the same today. eZY WRAP ice pack to left shoulder regularly. Continue plan PT OT for gentle range of motion exercises. I discussed the case with Dr. Alford. With the noted left humeral bone cyst, we will plan an MRI today. Admission and Anticipated Discharge Date Admission Date: September 23, 2019 Subjective Patient currently sitting at the bedside eating his breakfast. No overt complaints this morning. States that his shoulder continues to bother him. States that the only position that it does not bother him is whenever he is lying down. Discussed with him that there were no fractures noted on the shoulder x-ray however there is a bone cyst noted approximately mid humerus. Physical Exam Physical Exam: No overt swelling noted of the shoulder with ecchymosis noted down the anterior portion of the upper arm. Forward flexion to 120 degrees before stopping due to pain. Abduction to 90 degrees. Internal rotation within normal limits and external rotation to about 40 degrees. He has good biceps strength noted at this time but complains of pain in the shoulder itself when testing strength. Results & Data ([facility]) Vital Signs (Past 12 Hours) Vital Signs Temp Pulse Pulse Resp BP BP Pulse Ox 09/24/19 07:33 83 14 96 09/24/19 07:04 36.9 C 73 18 130/77 96 09/24/19 03:35 36.5 C 66 16 153/81 H 97 09/24/19 00:01 36.7 C 66 18 131/81 95 Diagnostic Findings Patient: JERMAIN CHOU DAdmit Date: 09/23/19 MR#: [id number]: [address] [facility] Acct ID:[id number]: Date: 1960[facility] Zip: [place] [address] Age: 59Location: 2S Sex: M Room/Bed: S2431 Att Phy: Anders Sommers MDDiagnosis: CHEST PAIN Leah Phy: Prakash Freeman M.D.Service Date: 09/23/19 Fam Phy:Interpreting Phy: Reid Colmenares MD Admit Phy: Shawn Arroyo MD Ordering Phy: Anders Sommers MD cc: ~ XR shoulder LT min 2V routine CLINICAL HISTORY: shoulder pain, s/p fall trauma. Pain. COMPARISON: None. DISCUSSION: Moderate degenerative change of the acromioclavicular as well as coronal humeral joints. Mild reactive osteophytic changes throughout. Small bone cyst involving the mid left humerus. There is no evidence for soft tissue swelling. IMPRESSION: No acute process. Moderate degenerative change.
--- NOTE | 2019-09-24 14:22 | Magnetic Resonance Report ---
MRI OF THE LEFT HUMERUS COMBO CLINICAL HISTORY: Humeral cyst. COMPARISON STUDY: Radiographs of the left shoulder dated 09/23/2019. TECHNIQUE: MRI of the left humerus is performed utilizing various T1 and T2-weighted sequences in the axial, sagittal, and coronal planes. Contrast-enhanced sequences are acquired following the IV admin istration of 7 cc of Gadavist. The examination is compromised by motion artifact. FINDINGS: There is a 13 mm juxtacortical cystic lesion within the posterior aspect of the proximal hu meral shaft. This is best seen on coronal STIR image #15. There is a thin rim of sclerosis around thi s lesion which was also seen by x-ray. There is no cortical destruction, marrow edema, or associated soft tissue lesion. Mild postcontrast enhancement is nonspecific. No additional bony lesion is identi fied. Mild cystic degenerative change is present in the greater tuberosity of the humeral head. The r egional musculature is normal in bulk and signal intensity. Soft tissue contusion is noted in the ant erior upper extremity/chest wall. IMPRESSION: 1. There is a 13 mm benign-appearing cystic lesion within the proximal humeral shaft. No aggressive f eatures were seen on the 09/23/2019 radiographs. Precautionary six-month radiographic follow-up is macy mmended for reassessment. 2. Soft tissue contusion is noted within the anterior upper extremity/chest wall. Dictated: 09/24/2019 1:09 PM Transcribed: 09/24/2019 2:15 PM Sharee [id number] [email or web address] Electronically signed by: Anup Barry M.D. 09/24/2019 2:20 PM
--- NOTE | 2019-09-24 16:15 | Hospitalist Progress Note ---
Date of Service September 24, 2019 Assessment & Plan (1) Chest pain: ASSESSMENT AND PLAN: This is a 59-year-old male with history of hypothyroidism, asthma, smoker, who presents with chest pain on exertion and shortness of breath. 1. Chest pain, likely secondary to left rib fractures, status post fall --Acute coronary syndrome ruled out Broach Operator consulted, no further cardiac testing at this point --Start Tylenol every 8 Incentive spirometry PT OT Left shoulder pain, status post fall --Shoulder x-ray pending Orthopedic consult PT OT Positive urine drug screen --Positive for MDMA, methamphetamine, marijuana Patient admits to using above for recreation Counseling for cessation performed Will need to be reported to [facility] Elevated d-dimer --CT negative for PE We will order Doppler ultrasound to rule out DVT 2. Hypothyroidism: Continue Synthroid. 3. Asthma: Continue his inhalers. Stable CT chest: Mucous plug --Nebs, Mucomyst 4. Tobacco abuse: --Counseling performed 5. Deep venous thrombosis prophylaxis, sequential compression devices. 6. Final disposition: PT OT evaluation Admission and Anticipated Discharge Date Admission Date: September 23, 2019 Results & Data Results & Data ([facility]) Vital Signs (Past 12 Hours) Vital Signs Temp Pulse Resp BP Pulse Ox 09/24/19 15:11 36.9 C 68 17 137/81 97 09/24/19 07:33 83 14 96 09/24/19 07:04 36.9 C 73 18 130/77 96 (1) Chest pain Chest pain type: unspecified Qualified Code(s): R07.9 - Chest pain, unspecified
--- NOTE | 2019-09-24 16:21 | Hospitalist Progress Note ---
Date of Service September 24, 2019 Assessment & Plan (1) Chest pain: ASSESSMENT AND PLAN: This is a 59-year-old male with history of hypothyroidism, asthma, smoker, who presents with chest pain on exertion and shortness of breath. 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 There is a 13 mm benign-appearing cystic lesion within the proximal humeral shaft. No aggressive features were seen on the 09/23/2019 radiographs. Precautionary six-month radiographic follow-up is recommended for reassessment. 2. Soft tissue contusion is noted within the anterior upper extremity/chest wall. Orthopedic service consulted, advised ice application regularly --Repeat left shoulder MRI in 6 months to follow-up cystic lesion Positive urine drug screen --Positive for MDMA, methamphetamine, marijuana Patient admits to using above for recreation Counseling for cessation performed Will need to be reported to [facility] Elevated d-dimer --CT negative for PE Lower extremity Doppler ultrasound: Negative for DVT Hypothyroidism: Continue Synthroid. Asthma Continue his inhaler Stable CT chest: Mucous plug --Nebs, Mucomyst given Tobacco abuse: --Counseling performed Disposition Discharge to home, follow-up with primary care physician at [facility] in 1 week as outlined in discharge instructions Admission and Anticipated Discharge Date Admission Date: September 23, 2019 Subjective Follow-up for chest pain secondary to rib fractures Seen resting in bed, comfortable, sleeping but easily awakened Comfortable, oriented x3, not in distress States he feels much better overall Left rib pain is improving, no shortness of breath, no cough, fevers or chills Ambulating the hallways today with no problems, saturating 96% on room air after ambulation Left shoulder pain also improving, can move left shoulder and arm better Other pain in his arm or any part of his body No headache, dizziness, nausea vomiting or blurring of vision, abdominal pain, problems urinating or bowel movement States he is ready and is requesting to be discharged today No other symptoms Review of Systems Review of Systems: All systems reviewed & are unremarkable except as noted in HPI & below Physical Exam Physical Exam: General- oriented x 2, not in distress, speaks in sentences with no effort or accessory muscle use Eyes- anicteric Neck- no JVD Lungs- clear breath sounds bilaterally, no rales/wheezes Heart- normal rate, regular rhythm; no murmurs No tenderness on the left ribs Abdomen- normal bowel sounds, nondistended, soft, nontender Extremities- no pretibial edema, no calf tenderness Left shoulder; no edema, hematoma improving, no tenderness, no warmth, increased range of motion Neuro- alert, oriented x 3; no gross focal neurologic deficits Skin- warm & dry Results & Data Results & Data ([facility]) Vital Signs (Past 12 Hours) Vital Signs Temp Pulse Resp BP Pulse Ox 09/24/19 15:11 36.9 C 68 17 137/81 97 09/24/19 07:33 83 14 96 09/24/19 07:04 36.9 C 73 18 130/77 96 Laboratory Results Laboratory Results - last 24 hr 09/23/19 17:04 Troponin I < 0.015 (1) Chest pain Chest pain type: unspecified Qualified Code(s): R07.9 - Chest pain, uns pecified
--- NOTE | 2019-09-24 16:45 | Discharge Summary ---
Date of Service September 24, 2019 Admission HPI Per Admitting Provider HISTORY OF PRESENT ILLNESS: This is a 59-year-old male with past medical history significant for tobacco abuse, asthma, hypothyroidism,presents with chest pain. The patient says he was walking when he felt chest pain and short of breath, sharp kind of pain, moderate in severity, no radiation, no nausea, no sweating, no dizziness, came to the ER, after nitroglycerin, pain seem to improve. Currently, patient is very drowsy, sleepy, difficult to arouse, but answers appropriately. Denies any cough, denies any fever or chills. Denies any loss of sense of smell or taste or any exposure to COVID patients. Denies any headache. Denies any earache or runny nose, no nausea, no abdominal pain. No rash seen. Says he smokes one pack of cigarettes every 3 days. 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 Admission Exam Per Admitting Provider GENERAL: The patient is drowsy, does not seem to be in acute distress. VITAL SIGNS: Temperature 36.5, pulse 52, respiratory rate 17, blood pressure 142/84, oxygen 100% on room air. HEENT: No pallor, no icterus. Pupils equal, round, reactive to light. NECK: No JVD, no neck masses. CARDIOVASCULAR: S1, S2 heard, regular rate and rhythm, no murmur, no gallop, bruise seen in the left shoulder. RESPIRATORY SYSTEM: Normal AP diameter. No accessory muscle use. No wheezing, no crackles. ABDOMEN: Soft, bowel sounds present, nontender. No distention. CENTRAL NERVOUS SYSTEM: Alert, drowsy but arousable, answers appropriately and obeys simple commands. Moves extremities. EXTREMITIES: No edema, no erythema. Principal Diagnosis Left sided chest pain secondary to rib fractures Discharge Exam General- oriented x 2, not in distress, speaks in sentences with no effort or accessory muscle use Eyes- anicteric Neck- no JVD Lungs- clear breath sounds bilaterally, no rales/wheezes Heart- normal rate, regular rhythm; no murmurs No tenderness on the left ribs Abdomen- normal bowel sounds, nondistended, soft, nontender Extremities- no pretibial edema, no calf tenderness Left shoulder; no edema, hematoma improving, no tenderness, no warmth, increased range of motion Neuro- alert, oriented x 3; no gross focal neurologic deficits Skin- warm & dry Discharge Data Allergies Allergy/AdvReac Type Severity Reaction Status Date / Time No Known Allergies Allergy Mild Verified 09/22/19 23:45 Consultations 09/23/19 00:41 ED Decision to Admit Stat 09/23/19 01:34 Consult Case Management - Discharge Planning Routine 09/23/19 08:00 Consult Cardiology Routine 09/23/19 12:13 Consult Orthopedic Surgery Routine Ordered Studies 09/22/19 23:50 CT angio chest PE protocol Urgent CT ANGIOGRAM OF THE CHEST CLINICAL HISTORY: Atypical chest pain. COMPARISON STUDY: Chest x-ray dated 09/22/2019. TECHNIQUE: Following the IV administration of 118 cc of Optiray 320, CT angiogram of the chest was performed from the upper abdomen to the thoracic inlet utilizing the pulmonary embolus protocol. Images are reviewed in the axial, sagittal, and coronal planes. 3-D MIPS images are created and assessed. IV contrast was administered without complication. A dose lowering technique was utilized adhering to the principles of ALARA. CT DOSE: 290.06 mGy.cm FINDINGS: Thyroid: Imaged portions of the thyroid gland are normal in size and attenuation. Thoracic aorta: The thoracic aorta is normal in caliber and demonstrates standard 3-vessel arch anatomy. No dissection is seen. Pulmonary vasculature: The pulmonary trunk is normal in caliber. There are no filling defects identified in main, lobar, or segmental pulmonary branches to suggest pulmonary embolus. Heart: The heart is mildly enlarged and without pericardial effusion. There are coronary artery calcifications. Lungs and pleural spaces: Evaluation of the lung parenchyma is degraded by motion artifact. Emphysematous change is noted. There is no airspace consolidation or pleural effusion. Scattered calcified granulomas are observed. Foci of scarring/atelectasis are noted at the lung bases. There is mild diffuse peribronchial thickening. There is fluid/secretions versus mucus plugging present within the lower lobe airways. A 3 mm pulmonary nodule at the left apex is seen on image #282. A 4 mm left upper lobe nodule is seen on image #228. Mediastinum: Scattered subcentimeter mediastinal lymph nodes are not pathologically enlarged by size criteria. Calcification containing nodes are noted. Akiko: There are calcified hilar nodes. No hilar adenopathy is seen. Axillae: There is no axillary lymphadenopathy. Upper abdomen: Partially visualized upper abdominal viscera is within normal limits. Skeletal structures: The skeletal structures appear osteopenic. There are acute left anterolateral 2nd through 6th rib fractures. Degenerative change is noted in the shoulders and thoracic spine. No lytic or blastic bony lesions are seen. There are healed right-sided rib fractures. IMPRESSION: 1. There is no evidence of pulmonary embolus in the main, lobar, or segmental pulmonary arteries. 2. There are acute left-sided rib fractures as above. 3. Cardiomegaly and emphysema. 4. There is no airspace consolidation or pleural effusion. 5. Mild diffuse peribronchial thickening suggests bronchitis/reactive airway disease. Additionally, there is mucus plugging versus fluid/secretions within the lower lobe airways. Clinical correlation will be required. 6. There are 2 left upper lobe pulmonary nodules measuring up to 4 mm. These are pathologically indeterminant and should be followed as per the Fleischner criteria. See below. Please refer to below summary of Fleischner criteria recommendations for follow- up of incidental CT nodules (Sally Mayo, Guidelines for management of small pulmonary nodules detected on CT scans: A statement from the Fleischner Society, Radiology 237: [phone].) SOLID NODULES Solitary nodule size: <6 mm * low risk patients: no follow-up needed * high risk patients: optional CT at 12 months Solitary nodule size: 6-8 mm * low risk patients: follow-up at 6-12 months, then consider further follow-up at 18-24 months * high risk patients: initial follow-up CT at 6-12 months and then at 18-24 months if no change Solitary nodule size: >8 mm * either low or high risk patients - consider follow-up CT at 3 months, and/or CT-PET, and/or biopsy Multiple nodules size: <6 mm * low risk patients: no routine follow-up * high risk patients: optional CT at 12 months Multiple nodules size: 6-8 mm * low risk patients: follow-up at 3-6 months, then consider further follow-up at 18-24 months * high risk patients: follow-up at 3-6 months, then at 18-24 months if no change Multiple nodules size: >8 mm * low risk patients: follow-up at 3-6 months, then consider further follow-up at 18-24 months * high risk patients: follow-up at 3-6 months, then at 18-24 months if no change Note: newly detected indeterminate nodule in persons 35 years of age or older. * low risk patients: minimal or absent history of smoking and/or other known risk factors * high risk patients: history of smoking or of other known risk factors (e.g. first degree relative with lung cancer, or exposure to asbestos, radon, uranium) * if a nodule up to 8 mm is partly solid or is ground glass further follow-up is required after 24 months to exclude possible slow growing adenocarcinoma (KIP) SUBSOLID NODULES Solitary pure ground-glass nodule * nodule size <6 mm - no CT follow-up required * nodule size >=6 mm - follow-up CT at 6-12 months, then every 2 years until 5 years Solitary part-solid nodule * nodule size <6 mm - no CT follow-up required * nodule size >=6 mm - follow-up CT at 3-6 months. If unchanged, and solid component remains <6 mm, then annual follow-up for 5 years Multiple subsolid nodules * nodule size <6 mm - follow-up CT at 3-6 months, consider further follow-up at 2 and 4 years if stable * nodule size >=6 mm - follow-up CT at 3-6 months, subsequent management based on the most suspicious nodule(s) 09/24/19 08:00 US venous doppler LE BI Routine No DVT within the right or left lower extremity. Complex collection within the left popliteal fossa measuring 5.2 x 4.1 x 5.1 cm. This is indeterminate but may demonstrate color flow. Follow-up ultrasound one month is recommended to ensure stability/resolution. 09/24/19 08:50 MR humerus LT wo/w con Routine CLINICAL HISTORY: Humeral cyst. COMPARISON STUDY: Radiographs of the left shoulder dated 09/23/2019. TECHNIQUE: MRI of the left humerus is performed utilizing various T1 and T2- weighted sequences in the axial, sagittal, and coronal planes. Contrast-enhanced sequences are acquired following the IV administration of 7 cc of Gadavist. The examination is compromised by motion artifact. FINDINGS: There is a 13 mm juxtacortical cystic lesion within the posterior aspect of the proximal humeral shaft. This is best seen on coronal STIR image #15. There is a thin rim of sclerosis around this lesion which was also seen by x-ray. There is no cortical destruction, marrow edema, or associated soft tissue lesion. Mild postcontrast enhancement is nonspecific. No additional bony lesion is identified. Mild cystic degenerative change is present in the greater tuberosity of the humeral head. The regional musculature is normal in bulk and signal intensity. Soft tissue contusion is noted in the anterior upper extremity/chest wall. IMPRESSION: 1. There is a 13 mm benign-appearing cystic lesion within the proximal humeral shaft. No aggressive features were seen on the 09/23/2019 radiographs. Precautionary six-month radiographic follow-up is recommended for reassessment. 2. Soft tissue contusion is noted within the anterior upper extremity/chest wall. Hospital Course (1) Chest pain: ASSESSMENT AND PLAN: This is a 59-year-old male with history of hypothyroidism, asthma, smoker, who presents with chest pain on exertion and shortness of breath. Chest pain, secondary to left rib fractures, status post fall --Acute coronary syndrome ruled out Troponins negative x3 EKG no signs of acute ischemia or infarct Echocardiogram: EF 60 to 65%, left ventricular wall motion is normal, no valvular pathology, normal LV relaxation Rate Clerk consulted, no further cardiac testing at this point --Given Tylenol every 8 hours Incentive spirometry Patient declined PT, did well on occupational therapy, ambulated with no problems --Pain improved --Encouraged to continue incentive spirometry, can use Tylenol for 4 to 6 hours, advised not to take more than 2000 mg/day to prevent liver injury Left shoulder pain, status post fall Cystic lesion within humeral shaft --Shoulder x-ray: No fracture Shoulder MRI: 1. There is a 13 mm benign-appearing cystic lesion within the proximal humeral shaft. No aggressive features were seen on the 09/23/2019 radiographs. Precautionary six-month radiographic follow-up is recommended for reassessment. 2. Soft tissue contusion is noted within the anterior upper extremity/chest wall. Orthopedic service consulted, advised ice application regularly --Repeat left shoulder MRI in 6 months to follow-up cystic lesion Please see full report outlined above in the ordered studies section. Illicit drug use --Urine drug screen positive for MDMA, methamphetamine, marijuana Patient admits to using above for recreation Counseling for cessation performed Patient will be reported to [facility], discussed with patient and he is agreeable Pulmonary nodules CT angiogram of the chest: There are 2 left upper lobe pulmonary nodules measuring up to 4 mm. These are pathologically indeterminant and should be followed as per the Fleischner criteria. Please see full CT report outlined above in the ordered studies section. Left popliteal fossa complex collection Complex collection within the left popliteal fossa measuring 5.2 x 4.1 x 5.1 cm Follow-up ultrasound one month is recommended to ensure stability/resolution. Please see full report outlined above in the ordered studies section. Elevated d-dimer --CT negative for PE Lower extremity Doppler ultrasound: Negative for DVT Hypothyroidism: Continue Synthroid. Asthma Continue inhaled bronchodilator Stable CT chest: Mucous plug --Nebs, Mucomyst given Tobacco abuse: --Counseling for cessation performed Disposition Discharge to home, follow-up with primary care physician at [facility] in 1 week as outlined in discharge instructions Plan of care discussed in detail and at length with patient All questions were answered He is understanding, agreeable, comfortable with the plan of care Total Time Total Time Spent Total Time Spent (In Minutes): 55 minutes Discharge Plan Discharge Items Patient Disposition: Home - Self-Care Reason For Visit: CHEST PAIN Discharge Diagnosis: CHEST PAIN SECONDARY TO LEFT RIB FRACTURES Condition on Discharge: Good Activity: Resume your previous activity Activity Comment: No heavy exertion until allowed by primary care physician Lifting Comment: No lifting on left arm Exercise/Sports: Wait until after follow-up appointment Driving/Machine Use: No driving until reevaluated and allowed by primary care physician Non-emergency contact: Primary Care Provider Call non-emergency contact if: you have any medication questions, your symptoms worsen, your pain is not controlled, your pain is worsening, your pain is unusual for you, your pain is concerning for you and you have a fever Follow-up/Referrals: Prakash Freeman [Primary Care Provider] - Micheline Carver MD [Outside Practitioners] - 09/28/19 11:20 am (09/28/2019 11:20 AM Provider Sarai Carver MD Department Internal Medicine [facility] ) Diet: Heart Healthy Addtl Attending Provider Instructions: Use the incentive spirometry every 15 minutes to prevent pneumonia or lung collapse. You can take Tylenol 500mg every 4-6 hours for rib pain. Do not exceed more than 2000 mg of Tylenol within 24 hours. You can also take ibuprofen 200 to 400 mg, three times a day as needed for pain. Apply ice packs on the left shoulder regularly. No alcohol, smoking, illicit drug use. Follow-up with the [facility] primary care physician next week as outlined above. Call primary care physician or return to the ER immediately if with worsening of symptoms, increasing pain, Shortness of breath, cough, sputum production, fevers or chills, weakness. Pending Studies at Discharge: No Stand-Alone Forms: My [employer], Smoking Cessation Medications and DC Order Prescriptions: Continued levothyroxine 50 mcg tablet 50 mcg PO QAM RF: 0 Flovent HFA 110 mcg/actuation HFA aerosol inhaler 2 puff INHALATION DAILY PRN (Reason: Shortness Of Breath Or Wheezing) RF: 0 Discharge Orders: Discharge Order (Routine); Ordered 09/24/19 Ordered By: Anders Sommers Admission Data Admit Date/Time: 09/23/19 01:17 Attending Provider: Anders Sommers Admit Provider: Shawn Arroyo Primary Care Provider: Prakash Freeman Other Providers: Marco Marquez ; Shawn Arroyo ; Jeff Pierce ; Piot Strong ; Lc Ny ; Maximus Spangler ; Jason Yates ; Reid Hester ; Tamara Prince ; Calli Mcconnell ; Neil Edwards ; Jayy Melchor
[2019-09-29 06:19] LABS: Amphetamine Urine, Confirm 3510 ng/mL (<250); MDA negative; MDEA negative; MDMA (Ecstasy) Urine, Confirm negative; Marijuana Quant, GCMS Urine 50 ng/mL (<5); Methamphetamine, Ur Confirm 13200 ng/mL (<250)
== END 2019-09-24 17:20 | disposition home or self-care (01) ==
LOC: ED 22:43 → 2S 22:43 → SUATTDRO 09-23 01:07 → 2S 09-23 01:32 → 3W 09-24 03:33